=== PATIENT | male | born 1980 | race Caucasian/White ===

== ENCOUNTER 2018-03-28 20:12 | Emergency (ER) | payer OTHER ==
[2018-03-28] MEDS: ONDANSETRON (ODT) 4 MG TAB ODT (20:50)
== END 2018-03-28 21:24 | disposition home or self-care (01) ==
LOC: FTE 20:12
DX: R11.10 Vomiting, unspecified (principal); F17.210 Nicotine dependence, cigarettes, uncomplicated
CPT/HCPCS: 99283; Z7502

== ENCOUNTER 2018-07-30 18:31 | Emergency (ER) | payer OTHER ==
[2018-07-30] MEDS: SOD CHLORIDE 0.9% 1,000 ML IV (23:14)
[2018-07-30 23:15] LABS: ADD MAN DIFF? NO
[2018-07-30] MEDS: ONDANSETRON 4 MG INJ IV (23:15)
[2018-07-30] MEDS: PANTOPRAZOLE 40 MG INJ IV (23:15)
[2018-07-30 23:25] LABS: BASOPHILS % 0.1 % (0.0-2.0); HEMATOCRIT 49.7 % (42.0-52.0); HEMOGLOBIN 16.6 g/dl (14.0-18.0); LYMPHOCYTES # 1.4 10^3/ul (0.8-2.9); LYMPHOCYTES % 9.6 % (15.0-51.0); MEAN CORPUSCULAR HEMOGLOBIN 29.4 pg (29.0-33.0); MEAN CORPUSCULAR HGB CONC 33.4 g/dl (32.0-37.0); MEAN CORPUSCULAR VOLUME 88.1 fl (82.0-101.0); MEAN PLATELET VOLUME 9.1 fl (7.4-10.4); MONOCYTE # 0.4 10^3/ul (0.3-0.9); MONOCYTES % 2.8 % (0.0-11.0); NEUTROPHIL # 12.5 10^3/ul (1.6-7.5); NEUTROPHILS % 86.9 % (39.0-77.0); PLATELET COUNT 374 10^3/UL (140-415); RED BLOOD COUNT 5.64 10^6/ul (4.70-6.10); RED CELL DISTRIBUTION WIDTH 12.9 % (11.5-14.5)
[2018-07-30 23:25] LABS: WHITE BLOOD COUNT 14.3 10^3/ul (4.8-10.8)
[2018-07-30 23:34] LABS: PROTIME 12.3 Sec (11.9-14.9)
[2018-07-30 23:40] LABS: ALANINE AMINOTRANSFERASE 91 IU/L (13-69); ALBUMIN/GLOBULIN RATIO 1.42; ALKALINE PHOSPHATASE 59 IU/L (42-121); ANION GAP 16 (5-13); ASPARTATE AMINO TRANSFERASE 48 IU/L (15-46); BILIRUBIN,INDIRECT 0.4 mg/dl (0-1.1); BILIRUBIN,TOTAL 0.4 mg/dl (0.2-1.3); BLOOD UREA NITROGEN 15 mg/dl (7-20); CALCIUM 10.1 mg/dl (8.4-10.2); CARBON DIOXIDE 25 mmol/L (21-31); CHLORIDE 104 mmol/L (97-110); Estimated GFR > 60 mL/min (>60); GLUCOSE 128 mg/dl (70-220); LIPASE 129 U/L (23-300); POTASSIUM 3.8 mmol/L (3.5-5.1); SODIUM 145 mmol/L (135-144); TOTAL PROTEIN 8.5 g/dl (6.1-8.1)
[2018-07-30 23:41] LABS: ADD UMIC YES; UR ASCORBIC ACID 40 mg/dL (NEGATIVE); UR BACTERIA MODERATE /HPF (NONE SEEN); UR BILIRUBIN (Dip) NEGATIVE (NEGATIVE); UR BLOOD (Dip) NEGATIVE (NEGATIVE); UR CLARITY CLOUDY (CLEAR); UR COLOR AMBER (YELLOW); UR GLUCOSE (Dip) NEGATIVE (NEGATIVE); UR KETONES (Dip) 2+ mg/dL (NEGATIVE); UR LEUKOCYTE ESTERASE (Dip) NEGATIVE Leu/ul (NEGATIVE); UR MUCUS MANY /HPF (NONE SEEN); UR NITRITE (Dip) NEGATIVE (NEGATIVE); UR RBC 17 /HPF (0-5); UR SPECIFIC GRAVITY (Dip) 1.033 (1.003-1.030); UR TOTAL PROTEIN (Dip) 3+ mg/dl (NEGATIVE); UR UROBILINOGEN (Dip) NEGATIVE (NEGATIVE); UR WBC 5 /HPF (0-5)
[2018-07-31] MEDS: ONDANSETRON 4 MG INJ IV (02:10)
[2018-07-31] MEDS: KETOROLAC 15 MG INJ IV (02:16)
[2018-07-31] MEDS: LIDOCAINE/MYLANTA 40 ML BTL PO (02:16)
[2018-07-31] MEDS: FAMOTIDINE 20 MG INJ IV (02:16)
[2018-07-31] MEDS: CIPROFLOXACIN 400MG/D5W 200 ML IVPB (02:26)
[2018-07-31] MEDS: metroNIDAZOLE 500 MG/NS (PMX) 100 ML IVPB (03:32)
== END 2018-07-31 04:08 | disposition home or self-care (01) ==
LOC: E/R 07-31 04:08
DX: K52.9 Noninfective gastroenteritis and colitis, unspecified (principal); D72.829 Elevated white blood cell count, unspecified; N30.01 Acute cystitis with hematuria; R74.0 Nonspecific elevation of levels of transaminase and lactic acid dehydrogenase [LDH]; Z87.891 Personal history of nicotine dependence
CPT/HCPCS: 36415; 71045; 74176; 80053; 81001; 83690; 85025; 85610; 93005; 96365; 96367; 96375; 96376; 99285-25

== ENCOUNTER 2018-08-01 10:10 | Observation (INO) | payer OTHER ==
[2018-08-01 11:18] LABS: ADD MAN DIFF? NO
[2018-08-01] MEDS ORDERED: ONDANSETRON 4 MG INJ (11:18)
[2018-08-01 11:20] LABS: WHITE BLOOD COUNT 10.2 10^3/ul (4.8-10.8)
[2018-08-01 11:20] LABS: BASOPHILS % 0.4 % (0.0-2.0); EOSINOPHILS % 0.1 % (0.0-7.0); HEMATOCRIT 50.5 % (42.0-52.0); LYMPHOCYTES # 1.6 10^3/ul (0.8-2.9); LYMPHOCYTES % 15.5 % (15.0-51.0); MEAN CORPUSCULAR HEMOGLOBIN 29.2 pg (29.0-33.0); MEAN CORPUSCULAR HGB CONC 33.7 g/dl (32.0-37.0); MEAN CORPUSCULAR VOLUME 86.8 fl (82.0-101.0); MEAN PLATELET VOLUME 8.9 fl (7.4-10.4); MONOCYTE # 0.4 10^3/ul (0.3-0.9); MONOCYTES % 3.9 % (0.0-11.0); NEUTROPHIL # 8.1 10^3/ul (1.6-7.5); NEUTROPHILS % 79.8 % (39.0-77.0); PLATELET COUNT 345 10^3/UL (140-415); RED BLOOD COUNT 5.82 10^6/ul (4.70-6.10); RED CELL DISTRIBUTION WIDTH 12.7 % (11.5-14.5)
[2018-08-01] MEDS: KETOROLAC 15 MG INJ IV (11:20)
[2018-08-01] MEDS: SOD CHLORIDE 0.9% 1,000 ML IV (11:20)
[2018-08-01 11:38] LABS: ALANINE AMINOTRANSFERASE 94 IU/L (13-69); ALBUMIN 4.9 g/dl (3.3-4.9); ALKALINE PHOSPHATASE 67 IU/L (42-121); ANION GAP 16 (5-13); ASPARTATE AMINO TRANSFERASE 55 IU/L (15-46); BILIRUBIN,INDIRECT 0.6 mg/dl (0-1.1); BILIRUBIN,TOTAL 0.6 mg/dl (0.2-1.3); BLOOD UREA NITROGEN 16 mg/dl (7-20); CARBON DIOXIDE 21 mmol/L (21-31); CHLORIDE 108 mmol/L (97-110); CREATININE 1.14 mg/dl (0.61-1.24); Estimated GFR > 60 mL/min (>60); GLUCOSE 113 mg/dl (70-220); LIPASE 112 U/L (23-300); POTASSIUM 3.6 mmol/L (3.5-5.1); SODIUM 145 mmol/L (135-144); TOTAL PROTEIN 8.4 g/dl (6.1-8.1)
[2018-08-01] MEDS: ONDANSETRON 4 MG INJ IV ×2 (11:42→17:11)
[2018-08-01] MEDS: DICYCLOMINE 20 MG INJ IM (11:42)
[2018-08-01] MEDS: LORAZEPAM 2 MG INJ IV (12:50)
[2018-08-01] MEDS ORDERED: ACETAMINOPHEN 325 MG TAB PO ×2 (13:00→16:00)
[2018-08-01] MEDS ORDERED: ONDANSETRON 4 MG INJ IV (13:00)
[2018-08-01] MEDS ORDERED: NACL 0.9% 3 ML SYG IV (16:00)
[2018-08-01] MEDS ORDERED: ZOLPIDEM 5 MG TAB PO (16:00)
[2018-08-01] MEDS: morphine 2 MG INJ IV ×2 (16:05→20:00)
[2018-08-01] MEDS: HYDROCODONE/APAP (5/325) TAB PO ×2 (17:11→23:02)
[2018-08-01] MEDS: 1/2 NS + KCL 20 MEQ 1,000 ML IV (18:56)
[2018-08-02] MEDS: morphine 2 MG INJ IV ×3 (01:47→10:29)
[2018-08-02] MEDS: ONDANSETRON 4 MG INJ IV ×2 (01:53→10:29)
[2018-08-02] MEDS: 1/2 NS + KCL 20 MEQ 1,000 ML IV ×2 (05:32→11:48)
[2018-08-02 06:02] LABS: ADD MAN DIFF? NO; HAAIG REFLEX REFLEX FILED
[2018-08-02 06:04] LABS: BASOPHIL # 0.1 10^3/ul (0.0-0.1); BASOPHILS % 0.6 % (0.0-2.0); EOSINOPHILS # 0.1 10^3/ul (0.0-0.5); EOSINOPHILS % 0.6 % (0.0-7.0); HEMATOCRIT 44.5 % (42.0-52.0); HEMOGLOBIN 14.9 g/dl (14.0-18.0); LYMPHOCYTES # 4.2 10^3/ul (0.8-2.9); LYMPHOCYTES % 38.2 % (15.0-51.0); MEAN CORPUSCULAR HEMOGLOBIN 29.7 pg (29.0-33.0); MEAN CORPUSCULAR HGB CONC 33.5 g/dl (32.0-37.0); MEAN CORPUSCULAR VOLUME 88.6 fl (82.0-101.0); MEAN PLATELET VOLUME 9.1 fl (7.4-10.4); MONOCYTE # 0.7 10^3/ul (0.3-0.9); NEUTROPHIL # 5.9 10^3/ul (1.6-7.5); NEUTROPHILS % 54.2 % (39.0-77.0); PLATELET COUNT 312 10^3/UL (140-415); RED BLOOD COUNT 5.02 10^6/ul (4.70-6.10); RED CELL DISTRIBUTION WIDTH 12.8 % (11.5-14.5)
[2018-08-02 06:04] LABS: WHITE BLOOD COUNT 10.9 10^3/ul (4.8-10.8)
[2018-08-02 06:26] LABS: ALANINE AMINOTRANSFERASE 75 IU/L (13-69); ALBUMIN 3.8 g/dl (3.3-4.9); ALKALINE PHOSPHATASE 45 IU/L (42-121); ANION GAP 9 (5-13); ASPARTATE AMINO TRANSFERASE 42 IU/L (15-46); BILIRUBIN,INDIRECT 0.7 mg/dl (0-1.1); BILIRUBIN,TOTAL 0.7 mg/dl (0.2-1.3); BLOOD UREA NITROGEN 15 mg/dl (7-20); CALCIUM 9.1 mg/dl (8.4-10.2); CARBON DIOXIDE 26 mmol/L (21-31); CHLORIDE 107 mmol/L (97-110); CREATININE 1.15 mg/dl (0.61-1.24); Estimated GFR > 60 mL/min (>60); GLUCOSE 82 mg/dl (70-220); POTASSIUM 3.8 mmol/L (3.5-5.1); SODIUM 142 mmol/L (135-144); TOTAL PROTEIN 6.5 g/dl (6.1-8.1)
[2018-08-02 06:29] LABS: MAGNESIUM 2.3 mg/dl (1.7-2.5)
[2018-08-02 06:29] LABS: PHOSPHORUS 4.3 mg/dl (2.5-4.9)
[2018-08-02 07:00] LABS: HEMOGLOBIN A1C 5.3 % (0-5.9)
[2018-08-02 07:07] LABS: HEPATITIS B SURFACE ANTIGEN NEGATIVE (NEGATIVE)
[2018-08-02 07:25] LABS: HEPATITIS B CORE ANTIBODY NEGATIVE (NEGATIVE); HEPATITIS C VIRAL ANTIBODY NEGATIVE (NEGATIVE)
[2018-08-02] MEDS: HYDROCODONE/APAP (5/325) TAB PO ×2 (07:48→11:50)
== END 2018-08-02 13:15 | disposition home or self-care (01) ==
LOC: E/R 10:10 → 2NE 13:01
DX: E87.1 Hypo-osmolality and hyponatremia (principal); R74.0 Nonspecific elevation of levels of transaminase and lactic acid dehydrogenase [LDH]
CPT/HCPCS: 36415; 80053; 83036; 83690; 83735; 84100; 85025; 86704; 86709; 86803; 87340; 96372; 96374; 96375; 99285-25

== ENCOUNTER 2018-12-09 18:06 | Emergency (ER) | payer OTHER ==
[2018-12-09] MEDS ORDERED: SILVER SULFADIAZINE 1% 400 GM CR TOP (18:30)
== END 2018-12-09 18:36 | disposition home or self-care (01) ==
LOC: E/R 18:36
DX: T24.231A Burn of second degree of right lower leg, initial encounter (principal); F17.210 Nicotine dependence, cigarettes, uncomplicated; X16.XXXA Contact with hot heating appliances, radiators and pipes, initial encounter; Y92.89 Other specified places as the place of occurrence of the external cause
CPT/HCPCS: 16020; 99283-25